=== PATIENT | male | born 1935 | race Caucasian/White ===

== ENCOUNTER 2017-03-19 23:46 | Inpatient (IN) | payer OTHER ==
--- NOTE | 2017-03-20 00:03 | CPEKG ---
Heart Rate: 95 RR Interval: 632 P-R Interval: 200 QRSD Interval: 96 QT Interval: 348 QTC Interval: 438 P [place]: 55 QRS [place]: -5 T Wave [place]: 72 EKG Severity - BORDERLINE ECG - EKG Impression: SINUS RHYTHM EKG Impression: BORDERLINE ST DEPRESSION, LATERAL LEADS Electronically Signed By: Fortino Spring 20-Mar-2017 06:29:39
--- NOTE | 2017-03-20 00:16 | EDPHY ---
H & P Stated Complaint: R-sided CP since 2129 Time Seen by Provider: 03/19/17 23:56 HPI/ROS: Chief Complaint: Chest pain HPI: 81-year-old male was a history of hypertension hyperlipidemia started having right-sided upper chest pain at 10 o'clock tonight. At worst is a 5 on 10. Is now is 0/10. It was described as dull. Has not had any shortness of breath. No recent illness. No fevers or chills. No cough. No nausea or vomiting. No abdominal pain. His last had a stress test about 10 years ago. No recent dyspnea on exertion. He is still working. He does not smoke, he quit in the 70s. Does drink occasional alcohol. ROS: 10 point Review of Systems is negative except as noted in the HPI. PMH: Hypertension, hyperlipidemia, lumbar compression fracture, hip replacement Social History: No smoking, occasional alcohol, no recreational drug use Family History: No family history of coronary artery disease, father of a hemorrhagic stroke Physical Exam: Gen: Awake, Alert, No Distress HEENT: Nose: no rhinorrhea Eyes: PERRLA, EOMI Mouth: Moist mucosa Neck: Supple, no JVD Chest: nontender, lungs clear to auscultation Heart: S1, S2 normal, 2/6 systolic murmur Abd: Soft, non-tender, no guarding Back: no CVA tenderness, no midline tenderness Ext: no edema, non-tender Skin: no rash Neuro: CN II-XII intact, Sensation grossly intact, Strength 5/5 in bilateral upper and lower extremities - Personal History Current Tetanus/Diphtheria Vaccine: Yes - Medical/Surgical History Hx Asthma: No Hx Chronic Respiratory Disease: No Hx Diabetes: No Hx Cardiac Disease: No Hx Renal Disease: No Hx Cirrhosis: No Hx Alcoholism: No Hx HIV/AIDS: No Hx Splenectomy or Spleen Trauma: No Other PMH: high cholesterol - Social History Smoking Status: Former smoker Constitutional: Initial Vital Signs Temperature (C) 36.5 C 03/19/17 23:47 Heart Rate 101 H 03/19/17 23:47 Respiratory Rate 18 03/19/17 23:47 Blood Pressure 141/107 H 03/19/17 23:47 O2 Sat (%) 95 03/19/17 23:47 O2 Delivery Mode Room Air Allergies/Adverse Reactions: No Known Allergies Allergy (Verified 03/19/17 23:49) Home Medications: Medication Instructions Recorded Herbals/Supplements -Info Only 1 ea PO DAILY 03/03/16 Lisinopril [Zestril 20 mg (*)] 20 mg PO DAILY 03/03/16 Rosuvastatin Calcium [Crestor 20mg 20 mg PO DAILY 03/03/16 (*)] Aspirin [Aspirin 325 mg (*)] 325 mg PO DAILY #0 tab 03/27/16 celeCOXIB [Celebrex (*)] 200 mg PO DAILY #0 cap 03/27/16 Coq-10 03/19/17 MYOCALM TABLET 03/19/17 Medical Decision Making - Diagnostics EKG Interpretation: ECG time 12:01 a.m. sinus rhythm with a rate of 95, normal axis, normal intervals, he does have some ST 1 mm depression in V4 through V6. Imaging Results: Chest x-ray is negative per my interpretation. Imaging: I viewed and interpreted images myself ED Course/Re-evaluation: 81-year-old male with an episode of chest pain which has since resolved. ECG shows some ST depression in lateral leads. Troponin is negative. He has a history of hypertension and hyperlipidemia. I have discussed with , hospitalist. She will admit to PCU observation for further evaluation. Patient took his own 325 mg of aspirin which she takes daily. - Data Points Laboratory Results: Laboratory Results 03/20/17 00:07 03/20/17 00:07 03/20/17 03/20/17 00:07 00:07 WBC 6.70 10^3/uL 10^3/uL (3.80-9.50) RBC 4.74 10^6/uL 10^6/uL (4.40-6.38) Hgb 16.1 g/dL g/dL (13.7-17.5) Hct 45.8 % % (40.0-51.0) MCV 96.6 fL fL (81.5-99.8) MCH 34.0 pg pg (27.9-34.1) MCHC 35.2 g/dL g/dL (32.4-36.7) RDW 13.5 % % (11.5-15.2) Plt Count 159 10^3/uL 10^3/uL (150-400) MPV 9.5 fL fL (8.7-11.7) Neut % (Auto) 49.7 % % (39.3-74.2) Lymph % (Auto) 39.0 % % (15.0-45.0) [facility] % (Auto) 8.7 % % (4.5-13.0) Eos % (Auto) 2.1 % % (0.6-7.6) Baso % (Auto) 0.4 % % (0.3-1.7) Nucleat RBC Rel Count 0.0 % % (0.0-0.2) Absolute Neuts (auto) 3.33 10^3/uL 10^3/uL (1.70-6.50) Absolute Lymphs (auto) 2.61 10^3/uL 10^3/uL (1.00-3.00) Absolute Monos (auto) 0.58 10^3/uL 10^3/uL (0.30-0.80) Absolute Eos (auto) 0.14 10^3/uL 10^3/uL (0.03-0.40) Absolute Basos (auto) 0.03 10^3/uL 10^3/uL (0.02-0.10) Absolute Nucleated RBC 0.00 10^3/uL 10^3/uL (0-0.01) Immature Gran % 0.1 % % (0.0-1.1) Immature Gran # 0.01 10^3/uL 10^3/uL (0.00-0.10) Sodium 142 mEq/L mEq/L (134-144) Potassium 4.4 mEq/L mEq/L (3.5-5.2) Chloride 105 mEq/L mEq/L (97-110) Carbon Dioxide 27 mEq/l mEq/l (22-31) Anion Gap 10 mEq/L mEq/L (8-16) BUN 17 mg/dL mg/dL (7-23) Creatinine 1.0 mg/dL mg/dL (0.7-1.3) Estimated GFR > 60 Glucose 103 mg/dL H mg/dL (70-100) Calcium 9.5 mg/dL mg/dL (8.5-10.4) Troponin I 0.015 ng/mL ng/mL (0.000-0.034) Departure - Departure Disposition: [facility] Inpatient Acute Clinical Impression: Chest pain Condition: Fair Referrals: ROSALIO PACHECO [Primary Care Provider] - As per Instructions
[2017-03-20 00:37] LABS: % IMMATURE GRANULYOCYTES 0.1 % (0.0-1.1); ABSOLUTE IMMATURE GRANULOCYTES 0.01 10^3/uL (0.00-0.10); ADD DIFF? NO; ADD MORPH? NO; ADD SCAN? NO; ATYPICAL LYMPHOCYTE FLAG 10 (0-99); FRAGMENT RBC FLAG 0 (0-99); HEMATOCRIT 45.8 % (40.0-51.0); HEMOGLOBIN 16.1 g/dL (13.7-17.5); LEFT SHIFT FLG 0 (0-99); LIPEMIA HEMOLYSIS FLAG 90 (0-99); MEAN CELL HEMOGLOBIN CONCENTR. 35.2 g/dL (32.4-36.7); MEAN CELL VOLUME 96.6 fL (81.5-99.8); MEAN PLATELET VOLUME 9.5 fL (8.7-11.7); PLATELET CLUMPS FLAG 10 (0-99); PLATELET COUNT 159 10^3/uL (150-400); RED BLOOD CELL COUNT 4.74 10^6/uL (4.40-6.38); RED CELL DISTRIBUTION WIDTH 13.5 % (11.5-15.2)
[2017-03-20 00:44] LABS: ANION GAP 10 mEq/L (8-16); CALCIUM 9.5 mg/dL (8.5-10.4); CARBON DIOXIDE 27 mEq/l (22-31); CHLORIDE 105 mEq/L (97-110); GLOMERULAR FILTRATION RATE > 60; GLUCOSE 103 mg/dL (70-100); POTASSIUM 4.4 mEq/L (3.5-5.2); SODIUM 142 mEq/L (134-144)
[2017-03-20 01:15] LABS: TROPONIN I 0.015 ng/mL (0.000-0.034)
[2017-03-20] MEDS ORDERED: ONDANSETRON 4 MG/2 ML VIAL IVP PRN (02:51)
[2017-03-20] MEDS ORDERED: HYDROCODONE/APAP 5/325 TAB PO PRN (02:51)
[2017-03-20] MEDS ORDERED: ACETAMINOPHEN 325 MG TAB PO PRN (02:51)
[2017-03-20] MEDS ORDERED: NITROGLYCERIN 0.4 MG BTL SL PRN (03:10)
[2017-03-20 06:19] LABS: % IMMATURE GRANULYOCYTES 0.2 % (0.0-1.1); ABSOLUTE IMMATURE GRANULOCYTES 0.01 10^3/uL (0.00-0.10); ADD DIFF? NO; ADD MORPH? NO; ADD SCAN? NO; ATYPICAL LYMPHOCYTE FLAG 10 (0-99); FRAGMENT RBC FLAG 0 (0-99); HEMATOCRIT 42.5 % (40.0-51.0); LEFT SHIFT FLG 0 (0-99); LIPEMIA HEMOLYSIS FLAG 90 (0-99); MEAN CELL HEMOGLOBIN 34.1 pg (27.9-34.1); MEAN CELL HEMOGLOBIN CONCENTR. 35.3 g/dL (32.4-36.7); MEAN CELL VOLUME 96.6 fL (81.5-99.8); MEAN PLATELET VOLUME 9.7 fL (8.7-11.7); PLATELET CLUMPS FLAG 0 (0-99); PLATELET COUNT 147 10^3/uL (150-400); RED CELL DISTRIBUTION WIDTH 13.3 % (11.5-15.2)
[2017-03-20 06:28] LABS: PROTIME(PATIENT) 13.4 SEC (12.0-15.0)
[2017-03-20 06:29] LABS: APTT 29.9 SEC (23.0-38.0)
[2017-03-20 06:38] LABS: ANION GAP 8 mEq/L (8-16); CALCIUM 8.6 mg/dL (8.5-10.4); CARBON DIOXIDE 29 mEq/l (22-31); CHLORIDE 104 mEq/L (97-110); CREATININE 0.9 mg/dL (0.7-1.3); GLOMERULAR FILTRATION RATE > 60; GLUCOSE 95 mg/dL (70-100); POTASSIUM 4.4 mEq/L (3.5-5.2); SODIUM 141 mEq/L (134-144)
[2017-03-20 06:50] LABS: CREATINE KINASE-MB FRACTION 1.77 ng/mL (0.00-3.19); TROPONIN I 0.017 ng/mL (0.000-0.034)
--- NOTE | 2017-03-20 07:43 | GHP ---
[f rep st] HISTORY AND PHYSICAL DATE OF ADMISSION: 03/20/2017 SOURCE: Patient provides history, appears reliable. CHIEF COMPLAINT: Chest pain. HISTORY OF PRESENT ILLNESS: This is a very pleasant 81-year-old gentleman with past medical history significant for hypertension, hyperlipidemia, chronic murmur with denial of any valvular heart diseas e, osteoarthritis, who presents to the emergency department today with complaints of new onset chest pain. Patient reports pain started approximately 7 or 8 o'clock in the evening. The patient reports he had a 5/10 dull chest pressure, central to the right side, without any radiation. Patient denies any associated nausea, vomiting, diaphoresis, or shortness of breath. The patient states that he in termittently had been experiencing similar chest pain during exertion. This evening, patient reports he was making love to his , and similarly with previous episodes, when he developed this chest p ain. Patients pain would improve with rest; however, today, pain did not dissipate and so, patient p resented to the emergency department for further evaluation. The patient states his last stress test was over 10 years ago. He has no known family history of early cardiac or coronary artery dis ease. Father with a history of hemorrhagic CVA. REVIEW OF SYSTEMS: Negative, except as noted above. ALLERGIES: No known drug allergies. HOME MEDICATIONS: As per EMR, Co-Q10, Celebrex 200 mg p.o. daily, Crestor 20 mg p.o. daily, lisinopr il 20 mg p.o. daily, aspirin 325 one tab p.o. daily. PAST MEDICAL HISTORY: Significant for benign essential hypertension, hyperlipidemia, osteoarthritis, history of chronic murmur, without known history of CHF or valvular disease. History of lumbar comp ression fracture. PAST SURGICAL HISTORY: Significant for left total hip arthroplasty in March 2016, a right leg EVELYNE F in 1960. FAMILY HISTORY: Negative for coronary artery disease. Father with history of a hemorrhagic CVA. Larry barber does not have any children. SOCIAL HISTORY: Patient is , lives with his spouse. He quit smoking in 1974. He drinks occa sional alcohol, but not on a daily basis. He denies any illicit drug use. CODE STATUS: Full. acts as proxy if needed. PHYSICAL EXAMINATION: VITAL SIGNS: Upon arrival to the emergency department, blood pressure 141/107 , heart rate 101, respiratory rate 18, O2 saturation 95% on room air, with a temperature of 36.5. Vi talkristi available at time of interview, blood pressure 123/83, heart rate is 80, with a respiratory rate 16, O2 saturation 95% on room air, with temperature 36.6: GENERAL: No acute distress. Very pleasa nt adult gentleman, who is resting quietly on bed. is at bedside asleep. HEAD: Normocephalic, atraumatic. EYES: Extraocular muscles are intact. Pupils equal, round, reactive to light bilatera lly, and symmetric. No scleral icterus or conjunctival injection. ENT: Mucous membranes appear enedelia st. No oropharyngeal erythema. Dentition intact. NECK: Supple. Trachea midline CV: Regular rate and rhythm with a 3/6 systolic murmur. No rubs or gallops appreciated. No chest wall tenderness to palpation. RESPIRATORY: Lungs are clear to auscultation bilaterally. No wheezes, rales, or rhonch i appreciated. Unlabored breathing. ABDOMEN: Positive bowel sounds, soft, nontender to palpation. No rebound, guarding, or masses appreciated. : No Yates in place. No suprapubic tenderness to p alpation. EXTREMITIES: Patient without any cyanosis, clubbing, and trace nonpitting edema present i n bilateral lower extremities with 2+ pedal pulses. NEURO: Cranial nerves 2 through 12 are intact a nd symmetric bilaterally. Patient is awake, alert, and oriented x4. PSYCHIATRIC: The patient's tho ught process, content, and questions appropriate. He is in good spirits. Answers questions appropri ately. LABORATORY STUDIES: 1. WBC 6.7, H and H 16.1 and 45.8, MCV of 96.6, platelet count is 157, neutrophil percent is 49.7. No bands. 2. PT is 13.4, INR is 1, PTT is 29.9. 3. Sodium is 142, potassium 4.4, chloride 105, CO2 is 27, anion gap 10, BUN 17, creatinine is 1, GFR greater than 60, glucose 103, calcium 9.5. Troponin is 0.015. 4. EKG reviewed myself, showing normal sinus rhythm, rate in the 90s, without any acute ST elevation s; however, there are borderline ST depressions in the anterolateral leads. QT is 348. This was com pared to EKG from 2011 that did not have any evidence of ST depressions in the lateral leads. 5. Chest x-ray image reviewed myself. Report is still pending. Negative for any acute infiltrates or valvular calcification. Otherwise, normal. ASSESSMENT AND PLAN: A very pleasant 81-year-old gentleman with history of hypertension, hyperlipide radhika, who presents with complaints of exertional chest pain. 1. Chest pain. The patient's chest complaints have been located on the right side. His typical in nature with exertion. His HEART Score is calculated to be a 7, and patient will be admitted for obse rvation on the PCU for close cardiac monitoring and further evaluation of his chest pain. We will pl an to do serial cardiac enzymes. Initial troponin was negative. We will repeat. If this remains ne gative, then we will anticipate that patient will require a stress test. After further discussion wi th the patient, he reports that due to his arthritis, he will not be able to participate appropriatel y on a treadmill stress testing option. We will anticipate patient will receive a Nuclear Medicine s tress later this morning pending the troponin. Patient is currently asymptomatic. He has nitroglyce rin and morphine available p.r.n. for any development of symptoms. 2. Benign essential hypertension. Blood pressures initially were elevated and have now downtrended. We will plan to resume patient's home medications including lisinopril. We will hold the Houser-2 inh ibitor. 3. Hyperlipidemia. We will check a lipid profile. Continue statin. 4. Fluid, electrolytes, nutrition. Patient orally hydrated prior to becoming n.p.o. this evening. We will plan a cardiac diet pending outcome of his stress test. Electrolyte replacement if needed. 5. Prophylaxis. SCDs. Lovenox, if patient should stay additional days. 6. Code status is full. Patient's to be proxy if needed. DISPOSITION: Patient admitted to observation on PCU pending outcome of stress test. /[id number]/MODL
[2017-03-20 07:49] LABS: CHOLESTEROL 114 mg/dL (140-220); CHOLESTEROL/HDL RATIO 2.43 RATIO (1.00-4.97); HIGH DENSITY LIPOPROTEIN 47 mg/dL (40-65); LDL/HDL RATIO 1.23 RATIO (1.00-3.64); LOW DENSITY LIPOPROTEIN 58 mg/dL (80-100); NON-HIGH DENSITY LIPOPROTEIN 67 mg/dL (90-129); TRIGLYCERIDE 49 mg/dL (40-150); VERY LOW DENSITY LIPOPROTEINS 9 mg/dL (8-25)
[2017-03-20] MEDS: HEPARIN 5,000 UNIT/0.5 ML SYR SC SCH ×3 (08:19→22:37)
--- NOTE | 2017-03-20 09:15 | CPEKG ---
Heart Rate: 64 RR Interval: 938 P-R Interval: 172 QRSD Interval: 94 QT Interval: 400 QTC Interval: 413 P [place]: 48 QRS [place]: 1 T Wave [place]: 103 EKG Severity - BORDERLINE ECG - EKG Impression: SINUS RHYTHM EKG Impression: PROBABLE LEFT ATRIAL ABNORMALITY Electronically Signed By: Jhonny Schaffer 20-Mar-2017 09:39:10
[2017-03-20] MEDS ORDERED: REGADENOSON 0.4 MG/5 ML SYR IVP ONE (10:19)
--- NOTE | 2017-03-20 10:53 | CPR ---
[f rep st] NONINVASIVE CARDIAC PROCEDURE REPORT Corrected report DATE OF PROCEDURE: 03/20/2017 PROCEDURE PERFORMED: Lexiscan nuclear stress test. INDICATION FOR STUDY: Chest pain. DESCRIPTION OF PROCEDURE: After informed consent was obtained, patient had baseline ECG performed demonstrating normal sinus rhythm with normal intervals, normal axis. He underwent infusion of Lexiscan 0.4 mg over 10 seconds. At peak hyperemia, patient was injected with Tc-99m sestamibi. The patient had no symptoms or ECG changes throughout the study. He tolerated the procedure well without complications. CONCLUSION: 1. Negative pharmacologic nuclear stress test. 2. Nuclear images pending. /[id number]/MODL Destiny worktype, 03/21/17, ulises ONTIVEROS
--- NOTE | 2017-03-20 12:39 | HOSPPROG ---
Hospitalist Progress Note Assessment/Plan: 81-year-old man admitted with chest pain. He is relatively active and does fairly physical activity which is somewhat limited by hip pain from arthritis. He has developed intermittent chest pain with activity over the last few months and had more chest pain last night at rest which prompted his admission here. His troponins have been negative overnight he had a nuclear stress test this morning which showed a defect and he needs to rest study tomorrow morning. His risk factors include hypertension and high cholesterol. # chest pain: * Repeat rest study tomorrow morning * Will keep him NPO in case that shows a positive test would likely need angiogram * Currently chest pain-free * Given abnormal test today, will need additional midnight stay for rest study # osteoarthritis of his hip # hypertension, controlled # hyperlipidemia on statin. Subjective: Patient new to me and chart reviewed. He currently has had no further chest pain since admission. He is quite hungry but other than that has no complaints. Objective: Vital Signs Temp Pulse Resp BP Pulse Ox 36.6 C 72 18 120/69 90 L 03/20/17 11:44 03/20/17 11:44 03/20/17 11:44 03/20/17 11:44 03/20/17 11:44 Laboratory Results 03/20/17 06:07 03/20/17 06:07 03/19/17 03/20/17 03/21/17 05:59 05:59 05:59 Intake Total 1000 Balance 1000 PT 13.4 SEC (12.0-15.0) 03/20/17 06:07 INR 1.00 (0.83-1.16) 03/20/17 06:07 - Physical Exam Constitutional: no apparent distress, appears nourished Eyes: PERRL Ears, Nose, Mouth, Throat: moist mucous membranes Cardiovascular: regular rate and rhythym, no murmur, rub, or gallop Respiratory: no respiratory distress Gastrointestinal: normoactive bowel sounds, soft, non-tender abdomen Genitourinary: No parisi in urethra Skin: warm Neurologic: AAOx3 Psychiatric: interacting appropriately ICD10 Worksheet Patient Problems: Problems Problem Status Onset Primary localized osteoarthritis of left hip Acute Chest pain Acute
[2017-03-20] MEDS: ROSUVASTATIN CALCIUM 20 MG TAB PO SCH (13:08)
--- NOTE | 2017-03-20 14:46 | PDMN ---
Medical Necessity Medical necessity: Pt meets INPT criteria per MD and [facility] M-89 Chest Pain (est. LOS >2 MN for eval/mgmt of chest pain with nuclear stress test showing a defect , requiring further w/u - rest study 03/21/17; hx htn, hyperlipidemia per MD progress note).
--- NOTE | 2017-03-20 15:10 | ASMTCMCOM ---
CM Note CM Note Notes: 81 year old male admitted for CP. He has a hx of smoking, HTN, HLD, Chronic murmur, Lumbar compression fx, OA. Patient had a nuclear stress test and to be retested Tuesday. CM to follow for possible discharge needs. Date Signed: 03/20/2017 03:09 PM Electronically Signed By:Yeimi Blackmon LCSW
[2017-03-20] MEDS ORDERED: ASPIRIN 325 MG TAB PO SCH (21:00)
[2017-03-21] MEDS: HEPARIN 5,000 UNIT/0.5 ML SYR SC SCH (06:47)
[2017-03-21 08:04] VITALS: BP 121/73; PULSE 63; RESP 16; TEMP 97.8; O2SAT 93
[2017-03-21] MEDS: ROSUVASTATIN CALCIUM 20 MG TAB PO SCH (08:18)
[2017-03-21] MEDS ORDERED: LISINOPRIL 20 MG TAB PO SCH (09:00)
--- NOTE | 2017-03-21 12:52 | GDS ---
[f rep st] DISCHARGE SUMMARY DIAGNOSES: 1. Chest pain. 2. Hypertension. 3. High cholesterol. HOSPITAL COURSE: The patient is a very nice 81-year-old with a history of hypertension, hyperlipidem ia, and a chronic murmur, who comes in with chest pain. He had an episode of 5/10 dull chest pressur e central to the right side, without any radiation or nausea, vomiting, diaphoresis that brought him into the hospital. He does admit to a history of similar pain for several months that was always ass ociated with exertion. He is quite healthy and active, and he notes that whenever he was doing thing s he would get increasing chest pressure, which would resolve with rest. He was admitted overnight. Enzymes were negative. EKG was unremarkable, and he had the Lexiscan stress test done due to arthri tis and difficulty with treadmill. That did show possible ischemia, so he stayed overnight for a res t study, which showed matched defects and was unremarkable. He had an EF of 65% on the nuc. He will be discharged home, but unfortunately, it is unclear as to the exact etiology of his exertional ches t pain, and I recommend he follow up with his primary care provider, Dr. Chavarria, as well as a followu p visit with a carpet inspector finished to see if there is any further evaluation they would recommend at this ti me. CONDITION ON DISCHARGE: Good. He has been pain free. His vital signs are stable. DISCHARGE MEDICATIONS: Please see discharge medication form. He will continue his usual medications . FOLLOWUP INSTRUCTIONS: He should follow up with Dr. Chavarria, and he can also follow up with Brian doty for a visit just to discuss his ongoing exertional chest pain and any further recommendations as an outpatient. /[id number]/MODL
--- NOTE | 2017-03-21 15:46 | ASDISCHSUM ---
Discharge Information Plan Status:Home with No Needs Medically Cleared to Leave: Discharge Date:03/21/2017 01:19 PM CM D/C Disposition:Home, Routine, Self-Care ADT D/C Disposition:Home, Routine, Self-Care Projected Discharge Date:03/21/2017 01:19 PM Transportation at D/C:Family Discharge Delay Reason: Follow-Up Date:03/21/2017 01:19 PM Discharge Slot: Final Diagnosis: Placement Information Patient Contact Information Contact Name:JUANITO Relationship:Life Partner Address:[address] Work Phone: City:[place] [facility] Phone: [facility]/Zip Code:[place] [address] Email: Financial Information Financial Class:Medicare Advantage Plans Primary Plan Desc:[employer] [facility] [employer] PL[employer] Primary Plan Number:[id number] Secondary Plan Desc: Secondary Plan Number: Assessment Information BC CM Progress Note CM Note CM Note Notes: 81 year old male admitted for CP. He has a hx of smoking, HTN, HLD, Chronic murmur, Lumbar compression fx, OA. Patient had a nuclear stress test and to be retested Tuesday. CM to follow for possible discharge needs. Date Signed: 03/20/2017 03:09 PM Electronically Signed By:Yeimi Blackmon LCSW Intervention Information
[2017-03-25] MEDS ORDERED: ALENDRONATE SODIUM 70 MG TAB PO SCH (07:00)
== END 2017-03-21 13:19 | disposition home or self-care (01) | DRG 313 ==
LOC: F2W 03-20 03:38 → OBSVTOIN 03-20 12:42
PROVIDERS: ADMIT Family Medicine; ATTEND Internal Medicine
DX: R07.9 Chest pain, unspecified (principal); I10 Essential (primary) hypertension; E78.00 Pure hypercholesterolemia, unspecified; R01.1 Cardiac murmur, unspecified; M16.11 Unilateral primary osteoarthritis, right hip; Z87.891 Personal history of nicotine dependence; Z96.642 Presence of left artificial hip joint; Z79.82 Long term (current) use of aspirin
CPT/HCPCS: A9500; J2785

== ENCOUNTER → 2017-05-26 | Day surgery (SDC) | payer OTHER ==
[~2017-05-26] MED LIST: ASPIRIN EC 325 MG TAB PO ONE; DIAZEPAM 5 MG TAB ONE; DIAZEPAM 5 MG TAB PO ONE; FAMOTIDINE 20 MG TAB ONE; FAMOTIDINE 20 MG TAB PO ONE; IOPAMIDOL (ISOVUE-370) 150 ML BTL IV ONE; LIDOCAINE 1% 300 MG/30 ML SDV ONE; MIDAZOLAM 2 MG/2 ML VIAL ONE; NS 1,000 ML IV ONE; diphenhydrAMINE 25 MG CAP PO ONE; fentaNYL 100 MCG/2 ML INJ ONE
--- NOTE | 2017-05-26 07:19 | CPEKG ---
Heart Rate: 64 RR Interval: 938 P-R Interval: 152 QRSD Interval: 96 QT Interval: 400 QTC Interval: 413 P [place]: 1 QRS [place]: 4 T Wave [place]: 134 EKG Severity - ABNORMAL ECG - EKG Impression: SINUS RHYTHM EKG Impression: ABNORMAL T, CONSIDER ISCHEMIA, LATERAL LEADS Electronically Signed By: Bola Yousif 28-May-2017 08:22:47
[2017-05-26 07:34] LABS: PLATELET COUNT 155 10^3/uL (150-400)
[2017-05-26 07:43] LABS: INR 0.96 (0.83-1.16)
--- NOTE | 2017-05-26 09:11 | PDHPUP ---
History & Physical Update H&P update statement: This history and physical update is based on an assessment of the patient which was completed after admission or registration (within 24 hours), but prior to the surgery/procedure. H&P update: H&P reviewed & patient examined, no change in patient's condition since H&P completed
--- NOTE | 2017-05-26 09:12 | PDPROPOC ---
Sedation Plan of Care Sedation Plan of Care: vital signs stable, mental status noted, patient educated of risks, benefits, alternatives, patient can tolerate sedation ASA Classification: ASA 2 Planned drugs: fentanyl, midazolam Mallampati Score: Class 1 Mallampati Reference Image: Patient passed 3-3-2 rule?: Yes
--- NOTE | 2017-05-26 10:03 | PDDXCAT ---
Diagnostic Cath Note - . Date: 05/26/17 Look Out Tower Fire Watcher: Nica Indication: Class I/II angina, intolerance to med therapy or failure to respond , other (pending aortic valve surgery) - Procedure Access: right groin Procedure: left heart catheterization, coronary angiography - Materials Left Heart Cath size: 6F Left Heart Cath materials: JL3.5, JR4.0, KETTY, José Miguel's R, other (AR1 and AL1) - Findings-Left Heart Catheterization LM: medium diameter vessel with bifurcation into the LAD and LCX vessels. No CAD was noted. LAD: Medium diameter vessel. One principal Diagonal. Just distal to the diagonal in the mid portion of the LAD, there is a 20% stenosis noted. LCX: Medium diameter vessel. In the mid portion of the vessel, there is a 20% stenosis noted. Two smallish OMs were noted. RCA: Medium diameter vessel with distal PDA and NOEL. No critical CAD was noted. EDP: not performed with critical LVEF: Not assessed with critical Wall motion: Not assessed with critical Complications: none Estimated blood loss: <50ml Closure method: Angioseal Assessment: Patient is a 81 y/o male with critical (mean gradient of 40 mm Hg ) with BRADFORD of <1.0 cm^2 without critical CAD noted. I did not cross the valve given the noted pathology by echo and fluoroscopy. Plan: Patient should be seen by Heart Team for discussion on options related to the aortic valve pathology noted. Intervention: none Patient Problems: Problems Problem Status Onset Chest pain Acute Primary localized osteoarthritis of left hip Acute
== END | disposition home or self-care (01) ==
LOC: FCATH 06:56
PROVIDERS: ATTEND Internal Medicine Cardiovascular Disease
PROC: 4A023N7 Measurement of Cardiac Sampling and Pressure, Left Heart, Percutaneous Approach (ICD-10-PCS; principal; 2017-05-26)
PROC: B2111ZZ Fluoroscopy of Multiple Coronary Arteries using Low Osmolar Contrast (ICD-10-PCS; principal; 2017-05-26)
DX: I35.0 Nonrheumatic aortic (valve) stenosis (principal); R01.1 Cardiac murmur, unspecified; I10 Essential (primary) hypertension; E78.5 Hyperlipidemia, unspecified
CPT/HCPCS: C1760; J1644; J2250; J3010; Q9967

== ENCOUNTER 2017-06-29 05:27 | Inpatient (IN) | payer OTHER ==
[2017-06-29] MEDS ORDERED: CITRATE DEXTROSE SOLN 500 ML BAG MISC ONE (05:45)
[2017-06-29] MEDS ORDERED: LIDOCAINE 1% 5 ML SDV ID PRN (05:45)
[2017-06-29] MEDS ORDERED: MUPIROCIN 2% 22 GM OINT NS ONE (05:45)
[2017-06-29] MEDS ORDERED: ceFAZolin 2 GM/SWFI 2 GM/20 ML SYR IVP ONE (05:45)
[2017-06-29] MEDS ORDERED: INSULIN REGULAR HUMAN 100 UNIT in NS 100 ML IV ONE (06:00)
[2017-06-29] MEDS ORDERED: AMINOCAPROIC ACID 5 GM/20 ML VIAL IV ONE (06:00)
[2017-06-29] MEDS ORDERED: NOREPINEPHRINE BITARTRATE 16 MG in NS 250 ML IV ONE (06:00)
[2017-06-29] MEDS ORDERED: PHENYLEPHRINE HCL 50 MG in NS 250 ML IV ONE (06:00)
[2017-06-29] MEDS ORDERED: MANNITOL 25% 12.5 GM/50 ML VIAL IVP ONE (06:00)
[2017-06-29] MEDS ORDERED: SODIUM BICARBONATE 20 MEQ, LIDOCAINE 1% 10 ML in NORMOSOL-R 1,000 ML MISC ONE (06:00)
[2017-06-29] MEDS ORDERED: niCARdipine/NACL 200 ML IV ONE (06:00)
[2017-06-29] MEDS ORDERED: LR 1,000 ML IV ONE (06:05)
[2017-06-29] MEDS ORDERED: LIDOCAINE 1% 2 ML INJ ID PRN (06:05)
[2017-06-29] MEDS ORDERED: PROTAMINE SULFATE 50 MG/5 ML VIAL IVP ONE (06:26)
[2017-06-29] MEDS ORDERED: ALBUMIN 5% 250 ML BOTTLE IV ONE (06:26)
[2017-06-29] MEDS ORDERED: CALCIUM CHLORIDE 1 GM/10 ML INJ ONE ×2 (06:27→10:14)
[2017-06-29] MEDS ORDERED: NA BICARBONATE 50 MEQ/50 ML VIAL ONE (06:27)
[2017-06-29] MEDS ORDERED: MILRINONE/DEXTROSE/100 ML BAG IV ONE (06:27)
[2017-06-29] MEDS ORDERED: LIDOCAINE 2% 100 MG/5 ML SYR ONE (06:27)
[2017-06-29] MEDS ORDERED: AMIODARONE HCL 150 MG/3 ML VIAL ONE (06:28)
[2017-06-29] MEDS ORDERED: niCARdipine/NACL/200 ML BAG IV ONE (06:28)
[2017-06-29] MEDS ORDERED: DOPamine/DEXTROSE/250 ML BAG IV ONE (06:28)
[2017-06-29] MEDS ORDERED: HEPARIN 10,000 UNIT/10 ML MDV (1,000 UNIT/ML) ONE (06:28)
[2017-06-29] MEDS ORDERED: CITRATE DEXTROSE SOLN 500 ML BAG ONE (06:28)
[2017-06-29] MEDS ORDERED: ceFAZolin 1 GM VIAL ONE (06:29)
[2017-06-29] MEDS ORDERED: ADENOSINE 6 MG/2 ML VIAL ONE (06:29)
[2017-06-29] MEDS ORDERED: MAGNESIUM SULFATE 1 GM/2 ML VIAL ONE (06:29)
[2017-06-29] MEDS ORDERED: methylPREDNISolone SOD SUCC 1 GM/8 ML VIAL ONE (06:29)
[2017-06-29] MEDS ORDERED: MINERAL OIL 10 ML VIAL ONE (06:49)
[2017-06-29] MEDS ORDERED: MIDAZOLAM 2 MG/2 ML VIAL IVP ONE (06:53)
--- NOTE | 2017-06-29 06:53 | PDANEPAE ---
ANE History of Present Illness here for AVR ANE Past Medical History - Cardiovascular History Hx Hypertension: Yes Hx Arrhythmias: No Hx Chest Pain: Yes Hx Coronary Artery / Peripheral Vascular Disease: No Hx CHF / Valvular Disease: No Hx Palpitations: No Cardiovascular History Comment: INTERMITTENT CP - Pulmonary History Hx COPD: No Hx Asthma/Reactive Airway Disease: No Hx Recent Upper Respiratory Infection: No Hx Oxygen in Use at Home: No Hx Sleep Apnea: No Sleep Apnea Screening Result - Last Documented: Positive - Neurologic History Hx Cerebrovascular Accident: No Hx Seizures: No Hx Dementia: No - Endocrine History Hx Diabetes: No - Renal History Hx Renal Disorders: No - Liver History Hx Hepatic Disorders: No - Neurological & Psychiatric Hx Hx Neurological and Psychiatric Disorders: No - Cancer History Hx Cancer: No - Congenital Disorder History Hx Congenital Disorders: No - GI History Hx Gastrointestinal Disorders: No - Other Health History Other Health History: NONE - Chronic Pain History Chronic Pain: No - Surgical History Prior Surgeries: LT TOTAL HIP 03/2016. R LEG REPAIR 1961 ANE Review of Systems Review of systems is: negative Review of Systems: - Exercise capacity Exercise capacity: >=4 METS METS (RN): 4 METS ANE Patient History - Allergies Allergies/Adverse Reactions: No Known Allergies Allergy (Verified 03/19/17 23:49) - Home Medications Home medications: home medication list seen and reviewed Home Medications: Herbals/Supplements -Info Only 1 ea PO DAILY 03/03/16 [Last Taken 06/22/17] Lisinopril [Zestril 20 mg (*)] 20 mg PO DAILY 03/03/16 [Last Taken 06/28/17 06: 00] Rosuvastatin Calcium [Crestor 20mg (*)] 20 mg PO DAILY 03/03/16 [Last Taken 06:00] Alendronate Sodium [Fosamax 70 MG (*)] 70 mg PO FR@0700 03/20/17 [Last Taken 01/03] Aspirin [Aspirin 325 mg (*)] 325 mg PO HS 03/20/17 [Last Taken 06/22/17] - NPO status NPO Status: no food or drink >8 hours NPO Since - Liquids (Date): 06/28/17 NPO Since - Liquids (Time): 18:00 NPO Since - Solids (Date): 06/28/17 NPO Since - Solids (Time): 19:00 - Anes Hx Anes Hx: no prior problems - Smoking Hx Smoking Status: Former smoker - Family Anes Hx Family Hx Anesthesia Complications: NONE ANE Labs/Vital Signs - Vital Signs Vital Signs: reviewed preoperatively; see RN documention for details Blood Pressure: 106/65 Heart Rate: 65 Respiratory Rate: 20 O2 Sat (%): 91 Height: 181.61 cm Weight: 79.832 kg ANE Physical Exam - Airway Neck exam: FROM Mallampati Score: Class 1 Mouth exam: normal dental/mouth exam - Pulmonary Pulmonary: no respiratory distress - Cardiovascular Cardiovascular: regular rate and rhythym - ASA Status ASA Status: III ANE Anesthesia Plan Anesthesia Plan: general endotracheal anesthesia Lines/Monitors: arterial line, central line, ANAIS
[2017-06-29] MEDS ORDERED: fentaNYL 250 MCG/5 ML INJ ONE (07:09)
[2017-06-29] MEDS ORDERED: PROPOFOL 200 MG/20 ML VIAL ONE ×2 (07:10→09:20)
[2017-06-29] MEDS ORDERED: KETAMINE 200 MG/20 ML VIAL ONE (07:43)
[2017-06-29] MEDS ORDERED: NITROGLYCERIN 50 MG/10 ML SDV IV ONE (07:54)
[2017-06-29] MEDS ORDERED: TRANEXAMIC ACID 1,000 MG in NS (SYRINGE) 50 ML IV ONE (08:30)
[2017-06-29] MEDS ORDERED: HYDROmorphONE/DILAUDID 2 MG/ML INJ ONE (09:15)
[2017-06-29] MEDS ORDERED: SUGAMMADEX SODIUM 200 MG/2 ML VIAL IVP ONE (09:55)
[2017-06-29] MEDS ORDERED: MAGNESIUM SULF 2 GM/WATER 50 ML BAG IV ONE (10:07)
[2017-06-29] MEDS ORDERED: LACTULOSE 20 GM/30 ML UDCUP PO PRN (10:26)
[2017-06-29] MEDS ORDERED: MAGNESIUM SULF 2 GM/WATER 50 ML IV ONE (10:26)
[2017-06-29] MEDS ORDERED: ONDANSETRON 4 MG/2 ML VIAL IVP PRN (10:26)
[2017-06-29] MEDS ORDERED: MAGNESIUM HYDROXIDE 30 ML UDCUP PO PRN (10:26)
[2017-06-29] MEDS ORDERED: POLYETHYLENE GLYCOL 3350 17 GM PKT PO PRN (10:26)
[2017-06-29] MEDS ORDERED: BISACODYL 10 MG SUPP PR PRN (10:26)
[2017-06-29] MEDS ORDERED: ONDANSETRON DISINTEGRATING 4 MG TAB PO PRN (10:26)
[2017-06-29] MEDS ORDERED: fentaNYL 100 MCG/2 ML INJ IVP PRN (10:26)
[2017-06-29] MEDS ORDERED: CEPACOL LOZENGE PO PRN (10:26)
[2017-06-29] MEDS ORDERED: PANTOPRAZOLE SODIUM 40 MG VIAL IVP ONE (10:26)
[2017-06-29] MEDS ORDERED: ACETAMINOPHEN 650 MG SUPP PR PRN (10:26)
[2017-06-29] MEDS ORDERED: MEPERIDINE 25 MG/ML SYR IVP PRN (10:26)
[2017-06-29] MEDS ORDERED: METOCLOPRAMIDE 10 MG/2 ML VIAL IVP PRN (10:26)
[2017-06-29] MEDS ORDERED: POTASSIUM Cl (KCl) 50 ML IV PRN (10:26)
[2017-06-29] MEDS ORDERED: D50W 25 GM/50 ML SYR IVP PRN (10:26)
[2017-06-29] MEDS ORDERED: SODIUM CL NASAL 45 ML BTL EACHNARE PRN (10:26)
[2017-06-29] MEDS ORDERED: INSULIN REGULAR HUMAN 100 UNIT in NS 100 ML IV SCH (10:30)
[2017-06-29] MEDS ORDERED: NS 1,000 ML IV SCH (10:30)
--- NOTE | 2017-06-29 10:54 | GOP ---
[f rep st] OPERATIVE REPORT DATE OF OPERATION: 06/29/2017 SURGEON: Da Arellano DO DRAWING BOX TENDER: Maral Felipe, MARY ANESTHESIOLOGIST: Kevin Bazzi MD PREOPERATIVE DIAGNOSIS: Aortic stenosis, aortic insufficiency. POSTOPERATIVE DIAGNOSIS: Aortic stenosis, aortic insufficiency. PROCEDURE PERFORMED: 1. Aortic valve replacement with a #23 Magna bioprosthesis. 2. Ligation of left atrial appendage with 40 mm AtriClip. FINDINGS: DESCRIPTION OF PROCEDURE: Under general anesthetic, patient was prepped and draped in sterile classi zita manner. Sternotomy was performed. He was heparinized, cannulated in the ascending aorta and rig ht atrium. Cardiopulmonary bypass was begun. Cardioplegic arrest was obtained with antegrade cardio plegia, retrograde cardioplegia, topical hypothermia, and systemic cooling. A 45 mm AtriClip was heena robert to the base of the left atrial appendage, avoiding the circumflex vessel, flush with the left atr ium for prophylactic AFib prevention for thrombus. We then did an aortotomy, extending it down to the noncoronary sinus. Aortic tissue was thin-walled but without calcification. A trileaflet valve was excised, which was heavily calcified. The annulus was debrided. LV chamber was irrigated. CO2 was infused. We then placed horizontal mattress sutur es circumferentially, seating a 23 mm Magna valve in a supra-annular position. Cor-Knots were used i ntermittently every other suture. Aortotomy was closed in a 2-layer fashion. The crossclamp was rem jerry with suction on the ascending aortic vent and LV sump. Patient was kept in Trendelenburg until no further air was identified. The sump was then removed. We then aspirated the LV apex again until no further air was seen on echo. He was then weaned in Trendelenburg. The heparin was reversed with protamine. The cannula was remov ed and oversewn. Two ventricular pacing wires, 2 mediastinal drains were placed. The thymic fat and pericardium were closed. Chest was closed in standard fashion. Patient was returned to ICU in stab le condition. /[id number]/MODL
[2017-06-29] MEDS: ALBUMIN 5% 250 ML IV PRN ×3 (11:43→16:15)
[2017-06-29] MEDS: KETOROLAC 15 MG/1 ML SDV IVP SCH ×2 (11:46→18:39)
--- NOTE | 2017-06-29 11:52 | CPEKG ---
Heart Rate: 92 RR Interval: 652 P-R Interval: 172 QRSD Interval: 118 QT Interval: 412 QTC Interval: 510 P Dover: 44 QRS Dover: -40 T Wave Dover: 129 EKG Severity - ABNORMAL ECG - EKG Impression: SINUS RHYTHM EKG Impression: LVH WITH IVCD, LAD AND SECONDARY REPOL ABNRM Electronically Signed By: Tony Mendieta 29-Jun-2017 13:03:12
--- NOTE | 2017-06-29 12:52 | ASMTCASEMG ---
Living Arrangements What is your living Answers: With Partner arrangement? Who do you live with? Type Of Residence What kind of residence do Answers: Apartment you live in? Discharge Plan Comments Coordination Status Comments Notes: Patient is a 81yo male who has exertional angina and was admitted for an aortic valve replacement and a ligation of left atrial appendage. PT/OT/cardiac rehab evals ordered. D/C plan TBD. CM will follow. Date Signed: 06/29/2017 12:52 PM Electronically Signed By:Jennie Love LCSW
--- NOTE | 2017-06-29 13:11 | PDMN ---
Medical Necessity Medical necessity: S290 cardiac valve replacement or repair 5 days: ANAT INPT only list : AVR
[2017-06-29] MEDS ORDERED: ceFAZolin 2 GM/DEXTROSE 100 ML IV SCH (14:00)
--- NOTE | 2017-06-29 15:11 | GCON ---
[f rep st] CONSULTATION PATIENT TRANSPORT ORDERLY CONSULTATION The patient examined postoperatively after receiving aortic valve replacement and ligation of left at rial appendage. The patient is a 81-year-old white male with a past medical history including hypert ension, hyperlipidemia, and a history of lumbar compression fracture. He is examined postoperatively after receiving aortic valve replacement. In discussion with the patient, he states overall he is d oing quite well. He states the postoperative pain is tolerable. He denies any cough or production o f sputum. There is no fever or night sweats. He states he is breathing well but it does hurt to clay e a deep inspiration. REVIEW OF SYSTEMS: A 10-point review of systems was performed and was negative except for which was noted in HPI. PAST MEDICAL HISTORY: Significant for hypertension, hyperlipidemia, osteoarthritis, lumbar compressi on fracture. PAST SURGICAL HISTORY: Total hip replacement and a leg ORIF. FAMILY HISTORY: Noncontributory. SOCIAL HISTORY: Previous smoker, none since 1974. He drinks occasional alcohol. He continues to wo rk. He is and has excellent family support. MEDICATIONS: At home include Crestor, Celebrex, lisinopril, aspirin. PHYSICAL EXAM: VITAL SIGNS: Blood pressure is 112/55, pulse 89, respirations are 13, temperature 35 .4, oxygen saturation 92% on 4 L. GENERAL: He is a well-developed, well-nourished, elderly white ma le who is resting comfortably in no acute distress. HEENT: Eyes are PERRLA, EOMI. Throat shows no erythema or tonsillar hypertrophy. NECK: Supple. There is no cervical adenopathy. HEART: Regular rate and rhythm with a 2/6 systolic murmur left sternal border without radiation. LUNGS: Diminishe d breath sounds but no wheeze. ABDOMEN: Soft, nontender. Bowel sounds are present in all 4 quadran ts. EXTREMITIES: No clubbing, cyanosis, or edema. LABORATORIES: Sodium 142, potassium 4.1, chloride 108. BUN is 13, creatinine 0.8, glucose is 151. Hemoglobin is 14, hematocrit 43. Arterial blood gas, pH 7.26 pCO2 of 51, pO2 of 64, bicarb 23, oxyge n saturation is 91%. Chest x-ray shows bilateral lower lobe atelectasis but no pneumothorax. IMPRESSION: 1. Status post aortic valve replacement. 2. Hypertension. 3. Hyperlipidemia. 4. Osteoarthritis. 5. History of lumbar compression fractures. RECOMMENDATIONS: 1. Adequate pain control. 2. DVT and PE prophylaxis, holding anticoagulation for now. 3. Stress ulcer prophylaxis. 4. Adequate nutrition. 5. PT and OT. 6. Early ambulation. /[id number]/MODL
[2017-06-29] MEDS: ceFAZolin 2 GM/SWFI 2 GM/20 ML SYR IVP SCH ×2 (16:36→23:46)
[2017-06-29] MEDS: MUPIROCIN 2% 22 GM OINT NS SCH (20:17)
[2017-06-29] MEDS: HYDROCODONE/APAP 5/325 TAB PO PRN ×2 (21:13→22:20)
[2017-06-30] MEDS: KETOROLAC 15 MG/1 ML SDV IVP SCH ×2 (01:28→06:18)
[2017-06-30] MEDS: HYDROCODONE/APAP 5/325 TAB PO PRN ×4 (02:08→21:08)
[2017-06-30 05:44] LABS: PLATELET COUNT 72 10^3/uL (150-400)
[2017-06-30] MEDS ORDERED: HEPARIN 5,000 UNIT/0.5 ML SYR SC SCH (06:00)
--- NOTE | 2017-06-30 07:03 | SOAPPROG ---
SOAP Progress Note Assessment/Plan: Assessment: POD#1 AVR #23 Magna bioprosthesis, prophylactic AtriClip ligation NINOSKA Sx severe - s/p tissue AVR. Stable early postop course. Extubated in the OR. No vasoactive support. No dysrhythmias. Modest CTOP. Antithrombotic prophylaxis with ASA alone pending stability of rhythm. Chronic class II dCHF - Care with preload. Acute expected blood loss anemia with thrombocytopenia - Stable. No transfusions required. Care with VTE prophylaxis while platelets depressed. Plan: Routine POD#1 orders re lines, drains, orals and mobility. Start gentle diuresis. Start metoprolol 12.5 mg BID. Tx to PCU. 06/30/17 06:58 Subjective: Feels pretty good. Improved pain control. Slept well. Walked 1 lap without difficulty. Entertaining some breakfast. Objective: Vital Signs Temp Pulse Resp BP Pulse Ox 36.6 C 80 20 127/65 H 94 06/29/17 19:32 06/30/17 05:47 06/30/17 05:47 06/30/17 05:47 06/30/17 05:47 Laboratory Results 06/30/17 05:35 06/30/17 05:35 06/29/17 06/30/17 07/01/17 05:59 05:59 05:59 Intake Total 1155 Output Total 1250 Balance -95 Holding SR. MAPs 70s-90s. CVPs mid teens. Stable suppl O2 req. Balanced I/Os. +7 kg overall. CXR -> Hypoventilation. No PTX. Mild pulm vasc congestion. CTOP approaching removal criteria. Labs as expected. Physical Exam - Physical Exam General Appearance: alert, no apparent distress Respiratory: crackles (bases), other (blakes x 2 to bulb suction, thin serosang drainage) Cardiac/Chest: regular rate, rhythm, other (Sternotomy CDI. Vwires intact.) Abdomen: normal bowel sounds, non-tender, soft Skin: warm/dry Extremities: swelling (trace) ICD10 Worksheet Patient Problems: Problems Problem Status Onset Acute blood loss anemia Acute S/P aortic valve replacement with bioprosthetic valve Acute ~06/29/17 Severe aortic stenosis Acute Mild mitral regurgitation Chronic
[2017-06-30] MEDS ORDERED: traMADol 50 MG TAB PO PRN (07:42)
[2017-06-30] MEDS ORDERED: FUROSEMIDE 20 MG/2 ML VIAL IVP ONE (08:00)
[2017-06-30] MEDS: ceFAZolin 2 GM/SWFI 2 GM/20 ML SYR IVP SCH ×3 (08:02→23:43)
[2017-06-30] MEDS: METOPROLOL TARTRATE 25 MG TAB PO SCH ×2 (08:03→19:50)
[2017-06-30] MEDS: PANTOPRAZOLE SODIUM 40 MG TAB PO SCH (08:03)
[2017-06-30] MEDS: ASPIRIN 81 MG CHEWABLE TAB PO SCH (08:03)
[2017-06-30] MEDS ORDERED: oxyCODONE IR 5 MG TAB PO PRN (08:05)
[2017-06-30] MEDS ORDERED: IBUPROFEN 600 MG TAB PO PRN (08:06)
[2017-06-30] MEDS: MUPIROCIN 2% 22 GM OINT NS SCH ×2 (12:32→19:48)
[2017-06-30] MEDS ORDERED: FUROSEMIDE 40 MG/4 ML VIAL IVP ONE (16:04)
[2017-07-01] MEDS: HYDROCODONE/APAP 5/325 TAB PO PRN ×2 (05:28→17:25)
[2017-07-01] MEDS ORDERED: ALENDRONATE SODIUM 70 MG TAB PO SCH (07:00)
--- NOTE | 2017-07-01 08:15 | SOAPPROG ---
SOAP Progress Note Assessment/Plan: Assessment: POD#2 AVR #23 Magna bioprosthesis, prophylactic AtriClip ligation NINOSKA Sx severe - s/p tissue AVR. Stable early postop course. Extubated in the OR. No vasoactive support. No dysrhythmias. Modest CTOP. Antithrombotic prophylaxis with ASA alone. Chronic class II dCHF - Care with preload. Uptitrate BB as tolerated. Resume low dose ACEI prior to discharge if sufficient BP. Acute expected blood loss anemia with thrombocytopenia - Stable. No transfusions required. Care with VTE prophylaxis while platelets depressed. Plan: Remove Vwire and lisa drains. Intensify diuresis. Cont metoprolol 12.5 mg BID. Consider inc to 25 mg BID tonight if sufficient BP. Stop NSAID. Ck HIT Ab. Baseline postop echo. Dispo - Anticipate home without services on 07/01/17 08:11 Subjective: Doing ok. Still having a hard time taking a deep breath. A bit orthopneic when supine. More comfortable upright w legs dangling. Objective: Vital Signs Temp Pulse Resp BP Pulse Ox 36.8 C 90 20 119/74 93 07/01/17 04:00 07/01/17 04:00 07/01/17 04:00 07/01/17 04:00 07/01/17 04:00 Laboratory Results 07/01/17 05:40 07/01/17 05:40 06/30/17 07/01/17 07/02/17 05:59 05:59 05:59 Intake Total 1155 1625 Output Total 1250 1875 Balance -95 -250 Holding SR. Upward trending SBPs > 110. Stable sats on 3 lpm O2. Improving fluid balance. +6 kg overall. Appropriate K response to diuresis. Plt yet to plateau. - Pending Discharge Pending Discharge Within 48 Hours: Yes Pending Discharge Date: 07/03/17 Pending Discharge Time: 11:00 Physical Exam - Physical Exam General Appearance: alert, no apparent distress Respiratory: crackles (bases), other (Blakes x 2 to bulb suction, serosang drainage. Removed without incident) Cardiac/Chest: regular rate, rhythm, other (Sternotomy CDI. 1 Vwire removed without difficulty. Tagged Vwire clipped at skin.) Abdomen: normal bowel sounds, non-tender Skin: warm/dry Extremities: swelling (trace - 1+ gen) ICD10 Worksheet Patient Problems: Problems Problem Status Onset Acute blood loss anemia Acute S/P aortic valve replacement with bioprosthetic valve Acute ~06/29/17 Severe aortic stenosis Acute Mild mitral regurgitation Chronic
[2017-07-01] MEDS: SENNOSIDES/DOCUSATE SODIUM TAB PO SCH ×2 (08:41→20:07)
[2017-07-01] MEDS: ROSUVASTATIN CALCIUM 20 MG TAB PO SCH (08:41)
[2017-07-01] MEDS: FUROSEMIDE 40 MG/4 ML VIAL IVP SCH ×2 (08:42→14:31)
[2017-07-01] MEDS: PANTOPRAZOLE SODIUM 40 MG TAB PO SCH (08:42)
[2017-07-01] MEDS: METOPROLOL TARTRATE 25 MG TAB PO SCH ×2 (08:42→20:08)
[2017-07-01] MEDS: MUPIROCIN 2% 22 GM OINT NS SCH (08:44)
[2017-07-01] MEDS: ASPIRIN 81 MG CHEWABLE TAB PO SCH (10:29)
--- NOTE | 2017-07-01 13:15 | ECHO ---
[email or web address] [address] Main: [phone] Fax: Transthoracic Echocardiogram Name: HAY REILLY MR#: [id number] Study Date: 07/01/2017 Study Time: 09:48 AM Date of : 1935 Age: 81 year(s) Height: 180.3 cm (71 in.) Weight: 85.73 kg (189 lb.) BSA: 2.06 m2 Gender: Male Examination: Echo Indication: Image Quality: Technically Difficult Contrast: Requested by: Maral Felipe BP: 122 mmHg/80 mmHg Heart Rate: Rhythm: Indication: Procedure Staff Web Content Coordinator: Nabila Whaley [facility] Reading Physician: Bola Gabriel MD Requesting Provider: Conclusions: Normal size left ventricle. Mild concentric LV hypertrophy. Normal global systolic LV function. EF is 64 %. There is mild thickening of the mitral valve leaflets. Mild mitral annular calcification. Mild mitral valve regurgitation is present. The aortic valve is a bioprosthesis. No prosthesis regurgitation. The mean gradient is 22 mmHg.. Right ventricular systolic pressure measures 34mmHg. Normal size ascending aorta measuring 3.6 cm. No old studies for comparison Measurements: Chambers Valvular Assessment AV/MV Valvular Assessment TV/PV Normal Normal Normal Name Value Range Name Value Range Name Value Range Ao Nga (MM): 3.5 cm (2.2 cm-3.7 AV Vmax: 3.01 m/s (1 m/s-1.7 TR Vmax: 2.70 mm/s ( - ) cm) m/s) TR PGmax: 29 mmHg ( - ) LVDd (2D): 4.7 cm (4.2 cm-5.9 AV maxP mmHg ( - ) syst. PAP: 34 mmHg ( - ) cm) AV meanP mmHg ( - ) PV Vmax: 0.95 m/s (0.6 m/s-0.9 LVDs (2D): 2.8 cm (2.1 cm-4 LVOT Vmax: 1.34 m/s (0.7 m/s-1.1 m/s) cm) m/s) PV PGmax: 4 mmHg ( - ) LVEF (BP): 64 % (>=55 %) MV E Vmax: 1.10 m/s ( - ) RVDd(2D): 3.7 cm (1.9 cm-3.8 MV A Vmax: 0.88 m/s ( - ) cmmm) MV E/A: 1.25 ( - ) Continued Measurements: Patient: HAY REILLY Study Date: 07/01/2017 Page 1 of 2 09:48 AM Chambers Valvular Assessment AV/MV Valvular Assessment TV/PV Name Value Name Value Name Value LADs Lon.9 cm MV DecTime: 236 m/s CVP (est.): 5 mmHg LA Area: 22.6 cm2 MV E/E' Septal: 15.90 LA Volume: 71 ml MV E/E' Lateral: 14.80 LA Volume Index: 34.5 ml/m2 RA Area: 16.0 cm2 Additional Vessels Name Value Ao Ascendin.6 cm Findings: Left Ventricle: Normal size left ventricle. Mild concentric LV hypertrophy. Normal global systolic LV function. EF is 64 %. There is paradoxic septal motion suggestive of bundle branch block, paced cardiac rhythm, or prior cardiac surgery. Normal diastolic LV function. Right Ventricle: Normal size right ventricle. Normal RV function. Left Atrium: The left atrium is normal in size. Right Atrium: The right atrium is normal in size. Mitral Valve: There is mild thickening of the mitral valve leaflets. Mild mitral annular calcification. Mild mitral valve regurgitation is present. No mitral stenosis is present. Aortic Valve: The aortic valve is a bioprosthesis. Normal functioning aortic valve prosthesis. The prosthetic aortic valve is normal. No prosthesis stenosis. No prosthesis regurgitation. The mean gradient is 22 mmHg.. Tricuspid Valve: The tricuspid valve appears normal. Mild tricuspid regurgitation is present. Right ventricular systolic pressure measures 34mmHg. The pulmonary artery pressure is normal. Pulmonic Valve: Pulmonary valve not well visualized. There is no pulmonic regurgitation seen. Aorta: Normal size aortic root measuring 3.5 cm. Normal size ascending aorta measuring 3.6 cm. IVC: The IVC is not visualized. Pericardium: No pericardial effusion. (No Signature Object) Patient: HAY REILLY Study Date: 07/01/2017 Page 2 of 2 09:48 AM [id number]
--- NOTE | 2017-07-01 15:04 | ASMTCMCOM ---
CM Note CM Note Notes: Chart reviewed. Patient s/p AVR, POD 2. Per [facility] likely to dc Tuesday with no needs. CM available should needs arise. Date Signed: 07/01/2017 03:04 PM Electronically Signed By:Dionna Hopkins RN
--- NOTE | 2017-07-02 07:20 | SOAPPROG ---
SOAP Progress Note Assessment/Plan: POD#3 AVR #23 Magna bioprosthesis, prophylactic AtriClip ligation NINOSKA Sx severe - s/p tissue AVR. Stable postop course. Antithrombotic prophylaxis with ASA alone. Post-op ECHO revealed normal functioning bioprosthetic valve. Continue IV diuresis for another day as BLE still edematous. Chronic class II dCHF - Continue BB. Resume low dose ACEI prior to discharge if sufficient BP. Continue IV diuresis for another day. Acute expected blood loss anemia - Stable. No transfusions required. Thrombocytopenia - Precautionary HIT pending. Slight increase in platelets today. DVT prophylaxis - SCDs/heparin SQ (held while platelets suppressed). Disposition - Plan for home Tuesday without services. Subjective: Feels well. Denies pain/SOB. Has been ambulating without issues. Objective: Vital Signs Temp Pulse Resp BP Pulse Ox 37.1 C 93 17 120/80 94 07/02/17 04:00 07/02/17 04:00 07/02/17 04:00 07/02/17 04:00 07/02/17 04:00 Laboratory Results 07/02/17 06:00 07/02/17 06:00 07/01/17 07/02/17 07/03/17 05:59 05:59 05:59 Intake Total 1625 700 Output Total 1875 4545 Balance -250 -1994 Physical Exam - Physical Exam General Appearance: WD/WN, alert, no apparent distress EENT: No scleral icterus (R), No scleral icterus (L) Neck: normal inspection Respiratory: No respiratory distress Cardiac/Chest: regular rate, rhythm Abdomen: non-tender, soft, No distended Skin: normal color, warm/dry Extremities: pedal edema Neuro/Psych: no motor/sensory deficits, alert, normal mood/affect, oriented x 3 ICD10 Worksheet Patient Problems: Problems Problem Status Onset Acute blood loss anemia Acute S/P aortic valve replacement with bioprosthetic valve Acute ~06/29/17 Severe aortic stenosis Acute Mild mitral regurgitation Chronic
[2017-07-02] MEDS: ACETAMINOPHEN 325 MG TAB PO PRN ×2 (08:18→22:42)
[2017-07-02] MEDS: ROSUVASTATIN CALCIUM 20 MG TAB PO SCH (08:19)
[2017-07-02] MEDS: SENNOSIDES/DOCUSATE SODIUM TAB PO SCH ×2 (08:19→20:16)
[2017-07-02] MEDS: POTASSIUM CL 20 MEQ TAB PO SCH ×2 (08:19→15:19)
[2017-07-02] MEDS: PANTOPRAZOLE SODIUM 40 MG TAB PO SCH (08:19)
[2017-07-02] MEDS: ASPIRIN 81 MG CHEWABLE TAB PO SCH (08:19)
[2017-07-02] MEDS: METOPROLOL TARTRATE 25 MG TAB PO SCH ×2 (08:19→20:16)
[2017-07-02] MEDS: FUROSEMIDE 40 MG/4 ML VIAL IVP SCH ×2 (08:19→15:19)
[2017-07-03] MEDS: ACETAMINOPHEN 325 MG TAB PO PRN ×2 (04:43→09:00)
[2017-07-03 05:33] VITALS: RESP 18
--- NOTE | 2017-07-03 07:25 | SOAPPROG ---
SOAP Progress Note Assessment/Plan: POD#4 AVR #23 Magna bioprosthesis, prophylactic AtriClip ligation NINOSKA Sx severe - s/p tissue AVR. Stable postop course. Antithrombotic prophylaxis with ASA alone. Post-op ECHO revealed normal functioning bioprosthetic valve. Chronic class II dCHF - Continue BB. Will resume ACEI as an outpatient. Acute expected blood loss anemia - Stable. No transfusions required. Thrombocytopenia - Precautionary HIT negative. Platelets trending higher DVT prophylaxis - SCDs/heparin SQ (held while platelets suppressed). Disposition - Plan for home today without services. Subjective: No complaints. Feels well. Objective: Vital Signs Temp Pulse Resp BP Pulse Ox 36.8 C 89 18 123/69 H 94 07/03/17 05:32 07/03/17 05:32 07/03/17 05:32 07/03/17 05:32 07/03/17 05:32 Laboratory Results 07/03/17 04:45 07/03/17 04:45 07/02/17 07/03/17 07/04/17 05:59 05:59 05:59 Intake Total 700 700 Output Total 0330 2440 Balance -1994 Physical Exam - Physical Exam General Appearance: WD/WN, alert, no apparent distress EENT: No scleral icterus (R), No scleral icterus (L) Neck: normal inspection Respiratory: No respiratory distress Cardiac/Chest: regular rate, rhythm Abdomen: non-tender, soft, No distended Skin: normal color, warm/dry Extremities: pedal edema Neuro/Psych: no motor/sensory deficits, alert, normal mood/affect, oriented x 3 ICD10 Worksheet Patient Problems: Problems Problem Status Onset Acute blood loss anemia Acute S/P aortic valve replacement with bioprosthetic valve Acute ~06/29/17 Severe aortic stenosis Acute Mild mitral regurgitation Chronic
[2017-07-03] MEDS ORDERED: POTASSIUM CL 20 MEQ TAB PO ONE (07:26)
[2017-07-03 07:28] VITALS: BP 119/73; PULSE 84; TEMP 98.4
--- NOTE | 2017-07-03 08:31 | PDHOMEO2F ---
Home Oxygen Face to Face Home Orders: I certify that a physician or a nurse practitioner or physician's certified surgical first assistant has had a [id number] encounter with this patient on the date of this order due to the diagnosis listed, which relates to the primary reason the patient requires home oxygen. Alternative treatments have been tried, or considered, and deemed ineffective. It is anticipated that supplemental oxygen will result in improvement with treatment. Home oxygen qualifying diagnosis: Atelectasis, pleural effusions, hypoxia, s/p AVR SpO2 on room air (%): 83 Frequency of home oxygen needed: with activity Home oxygen liters per minute: 1 Home oxygen delivery device: nasal cannula Concentrator: Yes E-tanks for mobility and back up: Yes If ordering portable O2, is the patient mobile in the home?: Yes I certify that, based on these findings, the home oxygen is medically necessary for this patient for the following length of time. Length of time home oxygen needed: 1 month
[2017-07-03] MEDS: METOPROLOL TARTRATE 25 MG TAB PO SCH (08:51)
[2017-07-03] MEDS: ROSUVASTATIN CALCIUM 20 MG TAB PO SCH (08:52)
[2017-07-03] MEDS: SENNOSIDES/DOCUSATE SODIUM TAB PO SCH (08:52)
[2017-07-03] MEDS: ASPIRIN 81 MG CHEWABLE TAB PO SCH (08:52)
[2017-07-03] MEDS: PANTOPRAZOLE SODIUM 40 MG TAB PO SCH (08:52)
[2017-07-03] MEDS ORDERED: POTASSIUM CL 20 MEQ TAB PO SCH (09:45)
[2017-07-03] MEDS ORDERED: FUROSEMIDE 40 MG TAB PO SCH (09:45)
--- NOTE | 2017-07-03 12:29 | PDDCSUM ---
Discharge Summary Discharge Summary: ADMISSION DATE: 06/29/17 DISCHARGE DATE: 07/03/17 ADMISSION DIAGNOSES: 1. Severe aortic stenosis 2. Chronic class II diastolic congestive heart failure DISCHARGE DIAGNOSES: 1. Severe aortic stenosis 2. Chronic class II diastolic congestive heart failure 3. Acute blood loss anemia PROCEDURES 06/29/17, Da Arellano: 1. Aortic valve replacement with #23 Magna bioprosthesis, ligation left atrial appendage with AtriClip HOSPITAL COURSE BY PROBLEM LIST 1. Severe aortic stenosis - s/p elective aortic valve replacement with bioprosthesis. Post-op ECHO revealed normal functioning valve with preserved normal LV and RV function. 2. Chronic class II diastolic congestive heart failure - pt 2 kg over pre-op weight with BLE 2+ edema. Beta-meri, Lasix, and fluid restriction (2L/day) prescribed. 3. Acute blood loss anemia - stable without the need for blood transfusions. CONDITION Good DISPOSITION Home, self-care ACTIVITY Pt was instructed on sternal precautions, activity limitations, and which problems to call [facility] with. Please see Discharge Plan in chart for specifics. DISCHARGE MEDICATIONS Continue: Herbals/Supplements Rosuvastatin Calcium [Crestor 20mg (*)] 20 mg PO DAILY Alendronate Sodium [Fosamax 70 MG (*)] 70 mg PO FR@0700 Aspirin [Aspirin 325 mg (*)] 325 mg PO HS New: Acetaminophen [Tylenol 325mg (*)] 325 - 650 mg PO Q4HRS PRN Furosemide [Lasix 40 MG (*)] 60 mg PO DAILY Metoprolol Tartrate [Lopressor 25 mg (*)] 25 mg PO BID Potassium Cl [Klor-Con 20 meq (*)] 20 meq PO DAILY O2, 1L NC with activity and while sleeping. Stop: Lisinopril PENDING STUDIES/LABS CXR prior to surgical follow-up FOLLOW-UP Da Arellano, 07/12/17, 10:30 AM
[2017-07-03 14:06] VITALS: O2SAT 90
== END 2017-07-03 13:03 | disposition home or self-care (01) | DRG 220 ==
LOC: F2N 05:27 → F2W 06-30 12:08
PROVIDERS: ADMIT Thoracic Surgery (Cardiothoracic Vascular Surgery); ATTEND Thoracic Surgery (Cardiothoracic Vascular Surgery)
DX: I35.0 Nonrheumatic aortic (valve) stenosis (principal); I11.0 Hypertensive heart disease with heart failure; I50.32 Chronic diastolic (congestive) heart failure; D62 Acute posthemorrhagic anemia; I35.1 Nonrheumatic aortic (valve) insufficiency; E78.5 Hyperlipidemia, unspecified; D69.6 Thrombocytopenia, unspecified; Z96.649 Presence of unspecified artificial hip joint
CPT/HCPCS: 82947-QW; 86022-90; 97110-GP; 97116-GP; 97162-GP; 97165-GO; 97530-GO; 97530-GP; 97535-GO; G8978-GP-CK; G8979-GP-CI; G8979-GP-CJ; G8980-GP-CI; G8987-GO-CI; G8988-GO-CI; J0153; J0282; J0690; J1170; J1265; J1644; J1815; J1885; J1940; J2001; J2150; J2250; J2260; J2270; J2370; J2704; J2720; J2930; J3010; J3475; J7060; P9041

== ENCOUNTER → 2017-07-12 | Outpatient (CLI) | payer OTHER | LOC: FIMAGING 09:53 | PROVIDERS: ATTEND Thoracic Surgery (Cardiothoracic Vascular Surgery) | DX: Z09 Encounter for follow-up examination after completed treatment for conditions other than malignant neoplasm (principal); Z95.2 Presence of prosthetic heart valve ==